=== PATIENT | male | born 1995 | race Caucasian/White ===

== ENCOUNTER 2017-11-08 17:55 | Emergency (ER) | payer MEDICAID ==
[~2017-11-08] VITALS: Ht 182.9 cm; Wt 74.8 kg
[2017-11-08] MEDS ORDERED: ADDERALL 20 MG20 MG PO (18:08)
== END 2017-11-08 18:49 | disposition home or self-care (01) ==
LOC: ED 17:55 → EDBD 17:56 → ED 18:49
DX: S16.1XXA Strain of muscle, fascia and tendon at neck level, initial encounter (principal); Z88.5 Allergy status to narcotic agent; Z79.899 Other long term (current) drug therapy; V48.6XXA Car passenger injured in noncollision transport accident in traffic accident, initial encounter; Y92.411 Interstate highway as the place of occurrence of the external cause
CPT/HCPCS: 72040; 99283

== ENCOUNTER 2017-11-08 22:27 | Emergency (ER) | payer MEDICAID ==
[~2017-11-08] VITALS: Ht 182.9 cm; Wt 74.8 kg
[~2017-11-08 22:27] MED LIST: ADDERALL 20 MG20 MG PO
== END 2017-11-08 23:19 | disposition home or self-care (01) ==
LOC: ED 22:27 → EDBD 22:28 → ED 23:19
DX: S16.1XXD Strain of muscle, fascia and tendon at neck level, subsequent encounter (principal); X58.XXXA Exposure to other specified factors, initial encounter; Z88.5 Allergy status to narcotic agent; Z79.899 Other long term (current) drug therapy
CPT/HCPCS: 72125; 99285